=== PATIENT | male | born 1965 | race Caucasian/White ===

== ENCOUNTER 2017-02-06 10:51 | Emergency (ER) | payer BC ==
[~2017-02-06] VITALS: Ht 185.4 cm; Wt 122.0 kg
[2017-02-06 11:16] LABS: HEMATOCRIT 47.2 % (38.0-50.0); MCH 28.6 PG (29.0-34.0); MCHC 33.7 G/DL (30.0-36.0); MCV 84.9 FL (86-99); MEAN PLAT.VOLUME 9.4 uM^3 (9.0-12.4); PLATELET COUNT 270 K/uL (156-360); RBC DIS.WIDTH-CV 12.9 % (11.8-14.6); RED BLOOD COUNT 5.56 M/uL (4.00-5.50); WHITE BLOOD COUNT 9.2 K/uL (4.1-10.2)
[2017-02-06 11:27] LABS: CHLORIDE 106 mEq/L (99-109); POTASSIUM 3.8 mEq/L (3.7-5.4); SODIUM 137 mEq/L (136-147)
[2017-02-06 11:28] LABS: GLUCOSE 97 mg/dL (70-99)
[2017-02-06 11:30] LABS: ANION GAP 8 MEQ/L (2-14)
[2017-02-06 11:33] LABS: UREA NITROGEN (BUN) 27 mg/dL (9-23)
[2017-02-06 11:36] LABS: GFR ESTIMATE (CALCULATED) > 59 mL/min/
[2017-02-06 11:37] LABS: TROP-I INTERPRETATION NEGATIVE; TROPONIN-I 0.01 ng/mL (0.0-0.30)
[2017-02-06 13:44] LABS: TROP-I INTERPRETATION NEGATIVE; TROPONIN-I < 0.01 ng/mL (0.0-0.30)
[2017-02-06 14:34] VITALS: BP 121/79
== END 2017-02-06 14:34 | disposition home or self-care (01) ==
LOC: EME 10:51
PROVIDERS: Emergency Medicine
DX: R07.89 Other chest pain (principal); F41.9 Anxiety disorder, unspecified; I10 Essential (primary) hypertension
CPT/HCPCS: 71020; 80048; 84484; 85027; 93005; 99281; 99284